=== PATIENT | female | born 1980 | race Caucasian/White ===

== ENCOUNTER 2016-09-26 08:46 | Emergency (ER) | payer MEDICAID ==
[~2016-09-26] VITALS: Ht 157.5 cm; Wt 49.9 kg
[2016-09-26] MEDS ORDERED: ACETAMINOPHEN ES 500 MG TABLET PO ONE (09:00)
--- NOTE | 2016-09-26 09:06 | NUR ---
Pt eloped, pt seen walking out of ER with steady gait.
[2016-09-26] MEDS ORDERED: ACETAMINOPHEN ES 500 MG TABLET ONE (09:10)
== END 2016-09-26 09:09 | disposition left against medical advice (07) ==
LOC: ER 08:46
DX: R07.81 Pleurodynia (principal); F41.9 Anxiety disorder, unspecified; F31.9 Bipolar disorder, unspecified; G43.909 Migraine, unspecified, not intractable, without status migrainosus; Z59.0 Homelessness; Z88.6 Allergy status to analgesic agent; Z88.8 Allergy status to other drugs, medicaments and biological substances; Z90.49 Acquired absence of other specified parts of digestive tract
CPT/HCPCS: 99282; A4663

== ENCOUNTER 2017-01-26 07:35 | Emergency (ER) | payer SELFPAY ==
[~2017-01-26] VITALS: Ht 157.5 cm; Wt 49.9 kg
[2017-01-26] MEDS ORDERED: HYDROCODONE/APAP 10-325 MG TABLET PO ONE (07:45)
[2017-01-26] MEDS ORDERED: HYDROCODONE/APAP 10-325 MG TABLET ONE (07:57)
--- NOTE | 2017-01-26 08:30 | NUR ---
MSE COMPLETED, PT D/C'D HOME, ACI/RX 1 GIVEN. PT AMBULATED W/O DIFF/TOOK ALL BNELONGINGS.
[2017-01-26 08:32] VITALS: BP 115/78
== END 2017-01-26 08:33 | disposition home or self-care (01) ==
LOC: ER 07:35
DX: S22.31XA Fracture of one rib, right side, initial encounter for closed fracture (principal); F17.200 Nicotine dependence, unspecified, uncomplicated; F41.9 Anxiety disorder, unspecified; F31.9 Bipolar disorder, unspecified; Z88.4 Allergy status to anesthetic agent; X58.XXXA Exposure to other specified factors, initial encounter; Y93.9 Activity, unspecified; Y99.8 Other external cause status; Y92.89 Other specified places as the place of occurrence of the external cause
CPT/HCPCS: 71101; A4663

== ENCOUNTER 2017-06-25 12:53 | Emergency (ER) | payer SELFPAY ==
[~2017-06-25] VITALS: Ht 157.5 cm; Wt 49.9 kg
== END 2017-06-25 13:21 | disposition home or self-care (01) ==
LOC: ER 12:53
DX: Z76.0 Encounter for issue of repeat prescription (principal); F41.9 Anxiety disorder, unspecified; F31.9 Bipolar disorder, unspecified; Z59.0 Homelessness; Z88.5 Allergy status to narcotic agent; G43.909 Migraine, unspecified, not intractable, without status migrainosus; Z90.49 Acquired absence of other specified parts of digestive tract
CPT/HCPCS: A4663

== ENCOUNTER 2018-01-01 06:46 | Emergency (ER) | payer MEDICAID ==
[~2018-01-01] VITALS: Ht 160 cm; Wt 52.2 kg
[2018-01-01] MEDS ORDERED: LIDOCAINE 5% PATCH TD ONE (07:45)
--- NOTE | 2018-01-01 07:49 | NUR ---
M[facility] llamas in [facility] - 01/01/18 at 1209 by KACEY MIGUEL.
--- NOTE | 2018-01-01 07:51 | NUR ---
PT REQUESTING FOR NARCOTICS, ELOPED AFTER REALIZING PT IS NOT RECIEVING ANY.
== END 2018-01-01 08:00 | disposition left against medical advice (07) ==
LOC: ER 06:53
DX: R07.81 Pleurodynia (principal); G89.4 Chronic pain syndrome; F17.200 Nicotine dependence, unspecified, uncomplicated; Z59.0 Homelessness; Z88.5 Allergy status to narcotic agent; Z88.8 Allergy status to other drugs, medicaments and biological substances
CPT/HCPCS: 99281; A4663

== ENCOUNTER 2018-01-08 09:50 | Emergency (ER) | payer MEDICAID ==
[~2018-01-08] VITALS: Ht 157.5 cm; Wt 52.2 kg
--- NOTE | 2018-01-08 10:08 | NUR ---
Patient discharged to home in stable conditon. Written and verbal after care instructions given. Patient verbalizes understanding of instructions.pt walks in steady gait.
[2018-01-08] MEDS ORDERED: ACETAMINOPHEN ES 500 MG TABLET PO ONE (10:15)
== END 2018-01-08 10:11 | disposition home or self-care (01) ==
LOC: ER 09:52
DX: R07.81 Pleurodynia (principal); F17.200 Nicotine dependence, unspecified, uncomplicated; Z88.5 Allergy status to narcotic agent; Z88.8 Allergy status to other drugs, medicaments and biological substances; Z90.49 Acquired absence of other specified parts of digestive tract; Z59.0 Homelessness
CPT/HCPCS: 99282; A4663

== ENCOUNTER 2018-03-11 16:24 | Emergency (ER) | payer MEDICAID ==
[~2018-03-11] VITALS: Ht 157.5 cm; Wt 52.2 kg
[2018-03-11] MEDS ORDERED: ONDANSETRON ODT 4 MG TAB.RAPDIS SL ONE (17:15)
[2018-03-11] MEDS ORDERED: ACETAMINOPHEN 325 MG TABLET PO ONE (17:15)
[2018-03-11] MEDS ORDERED: ACETAMINOPHEN 325 MG TABLET ONE (17:16)
[2018-03-11] MEDS ORDERED: ONDANSETRON ODT 4 MG TAB.RAPDIS ONE (17:17)
--- NOTE | 2018-03-11 17:23 | NUR ---
CALLED [facility] DUE TO PT AGGRESSIVE, LOUD BEHAVIOR. PT YELLING AND SKING NARCOTICS INSPITE OF ALREADY EXPLAINED TO HER THE REASON NOT GIVING NARCOTICS
== END 2018-03-11 17:27 | disposition home or self-care (01) ==
LOC: ER 16:28
DX: S00.81XA Abrasion of other part of head, initial encounter (principal); F17.200 Nicotine dependence, unspecified, uncomplicated; Z90.49 Acquired absence of other specified parts of digestive tract; Z88.5 Allergy status to narcotic agent; Z88.8 Allergy status to other drugs, medicaments and biological substances; Z59.0 Homelessness; V19.9XXA Pedal cyclist (driver) (passenger) injured in unspecified traffic accident, initial encounter; Y93.89 Activity, other specified; Y92.89 Other specified places as the place of occurrence of the external cause; Y99.8 Other external cause status
CPT/HCPCS: 99282; A4663; Q0162

== ENCOUNTER 2018-03-14 12:12 | Emergency (ER) | payer MEDICAID ==
[~2018-03-14] VITALS: Ht 157.5 cm; Wt 52.2 kg
--- NOTE | 2018-03-14 12:36 | NUR ---
patient in room, lying in bed in position, poorly groamed with dirty finger nails. No respirotory distress. Complains of nausea. Scabs on mid forehead and nose, secondary to fall 3 days ago, per patient. Patient changed into gown.
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
[2018-03-14] MEDS ORDERED: ACETAMINOPHEN ES 500 MG TABLET ONE (12:59)
[2018-03-14] MEDS ORDERED: ONDANSETRON ODT 4 MG TAB.RAPDIS ONE (12:59)
[2018-03-14] MEDS ORDERED: ACETAMINOPHEN ES 500 MG TABLET PO ONE (13:00)
[2018-03-14] MEDS ORDERED: ONDANSETRON ODT 4 MG TAB.RAPDIS SL ONE (13:00)
[2018-03-14 13:34] LABS: *URINE HCG, QUAL NEGATIVE (NEGATIVE)
--- NOTE | 2018-03-14 14:28 | NUR ---
Patient discharged ambulating with stable gait.. Patient given printed after care material, verbalizes understanding. No prescription. No IV inseted on this visit. Patient in stable condtion.
[2018-03-14 14:30] VITALS: BP 122/73
== END 2018-03-14 14:33 | disposition home or self-care (01) ==
LOC: ER 12:12
DX: S00.83XA Contusion of other part of head, initial encounter (principal); S00.81XA Abrasion of other part of head, initial encounter; F17.200 Nicotine dependence, unspecified, uncomplicated; Z90.49 Acquired absence of other specified parts of digestive tract; Z88.5 Allergy status to narcotic agent; Z88.8 Allergy status to other drugs, medicaments and biological substances; Z59.0 Homelessness; V29.9XXA Motorcycle rider (driver) (passenger) injured in unspecified traffic accident, initial encounter; Y93.89 Activity, other specified; Y92.89 Other specified places as the place of occurrence of the external cause; Y99.8 Other external cause status
CPT/HCPCS: 70450; 70486; 84703; 99285; A4663; A9150; Q0162

== ENCOUNTER 2018-10-28 02:39 | Emergency (ER) | payer MEDICAID ==
[~2018-10-28] VITALS: Ht 157.5 cm; Wt 54.4 kg
[2018-10-28] MEDS ORDERED: FLUCONAZOLE 100 MG TABLET PO ONE (03:00)
[2018-10-28] MEDS ORDERED: SULFAMETH/TRIMETH 800/160 MG TABLET PO ONE (03:00)
[2018-10-28] MEDS ORDERED: OXYCODONE/APAP 5-325 MG TABLET PO ONE (03:00)
[2018-10-28] MEDS ORDERED: FLUCONAZOLE 100 MG TABLET ONE (03:09)
[2018-10-28] MEDS ORDERED: OXYCODONE/APAP 5-325 MG TABLET ONE (03:10)
[2018-10-28] MEDS ORDERED: SULFAMETH/TRIMETH 800/160 MG TABLET ONE (03:10)
--- NOTE | 2018-10-28 03:16 | NUR ---
Pt states she wants to leave. Understands & verbalizes d/c instructions.
--- NOTE | 2018-10-28 03:17 | NUR ---
Patient given written and verbal discharge instructions. Patient verbalizes understanding of instructions. Patient is ambulatory with steady gait. Refuses offer of long-term placement. Patient given list of available shelters in surrounding area.
[2018-10-28 03:20] VITALS: BP 121/69
[2018-10-28 03:20] LABS: *BILIRUBIN,URIN NEGATIVE (NEGATIVE); *BLOOD, URINE NEGATIVE (NEGATIVE); *CLARITY,URINE SLIGHTLY CLOUDY (CLEAR); *COLOR,URINE YELLOW (YELLOW); *KETONES,URINE TRACE (NEGATIVE); LEUKOCYTE ESTERASE ,URINE 2+ (NEGATIVE); NITRITE, URINE POSITIVE (NEGATIVE); PH,URINE 6.5 (5.0-8.0); UGLUCOSE NEGATIVE (NEGATIVE)
[2018-10-28 03:30] LABS: BACTERIA,URINE MANY /HPF (NONE SEEN); SQUAMOUS EPITHELIAL CELL,UR MODERATE /HPF (NONE SEEN); WBC,URINE 20-50 /HPF (0-3)
[2018-10-28 03:31] LABS: *URINE HCG, QUAL NEGATIVE (NEGATIVE)
== END 2018-10-28 03:21 | disposition home or self-care (01) ==
LOC: ER 02:43
DX: N39.0 Urinary tract infection, site not specified (principal); N80.9 Endometriosis, unspecified; J45.909 Unspecified asthma, uncomplicated; F17.200 Nicotine dependence, unspecified, uncomplicated; Z90.49 Acquired absence of other specified parts of digestive tract; Z59.0 Homelessness; Z88.5 Allergy status to narcotic agent; Z88.8 Allergy status to other drugs, medicaments and biological substances
CPT/HCPCS: 84703; 87077; 87086; A4663

== ENCOUNTER 2018-12-24 07:59 | Inpatient (IN) | payer MEDICAID ==
[~2018-12-24] VITALS: Ht 162.6 cm; Wt 58.1 kg
[2018-12-24] MEDS ORDERED: ACETAMINOPHEN 325 MG TABLET PO ONE (08:30)
[2018-12-24] MEDS ORDERED: METOCLOPRAMIDE HCL 10 MG/2 ML VIAL IV ONE (08:30)
[2018-12-24] MEDS ORDERED: IV NORMAL SALINE 1000 ML BAG IV ONE (08:30)
[2018-12-24] MEDS ORDERED: METOCLOPRAMIDE HCL 10 MG/2 ML VIAL ONE (08:49)
[2018-12-24] MEDS ORDERED: ACETAMINOPHEN ES 500 MG TABLET ONE (08:50)
[2018-12-24 08:52] LABS: BASOPHILS % (AUTO) 0.2 % (0.0-2.0); HEMATOCRIT 41.8 % (31.2-41.9); HEMOGLOBIN 14.5 g/dL (10.9-14.3); LYMPHOCYTES # (AUTO) 0.8 K/uL (20.0-40.0); LYMPHOCYTES % (AUTO) 9.5 % (20.5-51.5); MEAN CORPUSCULAR HEMOGLOBIN 32.3 uug (24.7-32.8); MEAN CORPUSCULAR HGB CONC 35 g/dL (32.3-35.6); MEAN CORPUSCULAR VOLUME 93.6 fL (75.5-95.3); MONOCYTES # (AUTO) 0.6 K/uL (2.0-10.0); MONOCYTES % (AUTO) 7.5 % (0.0-11.0); NEUTROPHILS # (AUTO) 6.9 K/uL (1.8-8.9); NEUTROPHILS % (AUTO) 82.8 % (38.5-71.5); PLATELET COUNT (AUTO) 218 K/uL (179-408); RED BLOOD CELL COUNT(AUTO) 4.47 MIL/uL (3.63-4.92); WHITE BLOOD COUNT (AUTO) 8.4 K/uL (3.8-11.8)
[2018-12-24 09:04] LABS: ETHANOL < 3 MG/DL (0-0)
[2018-12-24 09:05] LABS: BILIRUBIN,DIRECT 0.5 mg/dL (0.0-0.2); BILIRUBIN,TOTAL 2.7 mg/dL (0.2-1.0); CREATININE 0.7 mg/dL (0.6-1.3); POTASSIUM 3.1 mmol/L (3.5-5.1); TOTAL PROTEIN, SERUM 8.3 g/dL (6.4-8.2)
[2018-12-24 10:08] LABS: *BLOOD, URINE 2+ (NEGATIVE); *CLARITY,URINE SLIGHTLY CLOUDY (CLEAR); *COLOR,URINE YELLOW (YELLOW); *KETONES,URINE NEGATIVE (NEGATIVE); LEUKOCYTE ESTERASE ,URINE 1+ (NEGATIVE); NITRITE, URINE POSITIVE (NEGATIVE); PH,URINE 6.5 (5.0-8.0); UGLUCOSE NEGATIVE (NEGATIVE)
[2018-12-24 10:09] LABS: *URINE HCG, QUAL NEGATIVE (NEGATIVE)
[2018-12-24 10:11] LABS: *BILIRUBIN,URIN 1+ (NEGATIVE)
[2018-12-24 10:16] LABS: *AMPHETAMINE, URINE POSITIVE (NEGATIVE); *BARBITURATE, URINE NEGATIVE (NEGATIVE); *CANNABINOID, URINE NEGATIVE (NEGATIVE); *COCCAINE, URINE NEGATIVE (NEGATIVE); *OPIATE, URINE NEGATIVE (NEGATIVE); *PHENCYCLIDINE SCREEN,URINE NEGATIVE (NEGATIVE)
[2018-12-24 10:30] LABS: BACTERIA,URINE MANY /HPF (NONE SEEN); SQUAMOUS EPITHELIAL CELL,UR FEW /HPF (NONE SEEN); WBC,URINE 20-50 /HPF (0-3)
[2018-12-24] MEDS ORDERED: POTASSIUM CHLORIDE 20 MEQ TAB.PRT.SR PO ONE (10:30)
[2018-12-24] MEDS ORDERED: CEFTRIAXONE 1 G in IV DEXTROSE 5% 50 ML IV ONE (10:30)
[2018-12-24] MEDS ORDERED: POTASSIUM CHLORIDE 20 MEQ TAB.PRT.SR ONE (10:33)
[2018-12-24] MEDS ORDERED: CEFTRIAXONE 1 G VIAL ONE (10:33)
[2018-12-24] MEDS ORDERED: ONDANSETRON 4 MG/2 ML VIAL IV PRN (11:30)
[2018-12-24] MEDS ORDERED: MAGNESIUM HYDROXIDE 30 ML LIQUID UDC PO PRN (11:30)
[2018-12-24 13:28] VITALS: BP 99/63
[2018-12-24] MEDS: IV NS 1000 ML 1,000 ML IV PRN (14:07)
[2018-12-24 16:11] VITALS: BP 100/63
[2018-12-24] MEDS: ACETAMINOPHEN 325 MG TABLET PO PRN (16:46)
[2018-12-24] MEDS: HYDROCODONE/APAP 5-325MG TABLET PO PRN (19:41)
[2018-12-24 20:03] VITALS: BP 118/78
[2018-12-25] MEDS: IV NS 1000 ML 1,000 ML IV PRN ×2 (01:10→10:50)
[2018-12-25] MEDS: HYDROCODONE/APAP 5-325MG TABLET PO PRN ×3 (01:18→13:07)
[2018-12-25] MEDS ORDERED: PIPERACILLIN/TAZOBACTAM/D5W 3.375 G in PREMIXED 1 EACH IV SCH (02:30)
[2018-12-25] MEDS ORDERED: PIPERACILLIN/TAZOBACTAM/D5W 3.375 G in PREMIXED 1 EACH IV ONE (02:30)
[2018-12-25] MEDS ORDERED: PIPERACILLIN/TAZOBACTAM/D5W 50 ML IV ONE (02:59)
[2018-12-25] MEDS: ACETAMINOPHEN 325 MG TABLET PO PRN (03:15)
[2018-12-25] MEDS: PANTOPRAZOLE SODIUM 40 MG TABLET.DR PO SCH (06:08)
[2018-12-25 06:13] VITALS: BP 120/60
[2018-12-25 06:40] LABS: BASOPHILS % (AUTO) 0.4 % (0.0-2.0); EOSINOPHILS % (AUTO) 0.5 % (0.0-7.0); HEMATOCRIT 37.2 % (31.2-41.9); HEMOGLOBIN 12.7 g/dL (10.9-14.3); LYMPHOCYTES % (AUTO) 22.8 % (20.5-51.5); MEAN CORPUSCULAR HEMOGLOBIN 32.3 uug (24.7-32.8); MEAN CORPUSCULAR HGB CONC 34 g/dL (32.3-35.6); MEAN CORPUSCULAR VOLUME 94.6 fL (75.5-95.3); MONOCYTES # (AUTO) 0.4 K/uL (2.0-10.0); MONOCYTES % (AUTO) 10.4 % (0.0-11.0); NEUTROPHILS # (AUTO) 2.8 K/uL (1.8-8.9); NEUTROPHILS % (AUTO) 65.9 % (38.5-71.5); PLATELET COUNT (AUTO) 189 K/uL (179-408); RED BLOOD CELL COUNT(AUTO) 3.93 MIL/uL (3.63-4.92); WHITE BLOOD COUNT (AUTO) 4.2 K/uL (3.8-11.8)
[2018-12-25 06:59] LABS: BILIRUBIN,TOTAL 1.7 mg/dL (0.2-1.0); CREATININE 0.6 mg/dL (0.6-1.3); MAGNESIUM 1.8 mg/dL (1.8-2.4); PHOSPHOROUS 2.9 mg/dL (2.5-4.9); POTASSIUM 3.5 mmol/L (3.5-5.1); TOTAL PROTEIN, SERUM 6.4 g/dL (6.4-8.2)
[2018-12-25 07:05] LABS: THYROID STIMULATING HORMONE 1.288 mIU/mL (0.358-3.740)
[2018-12-25] MEDS ORDERED: CEFTRIAXONE 1 G in IV DEXTROSE 5% 50 ML IV SCH (10:00)
[2018-12-25] MEDS: PIPERACILLIN/TAZOBACTAM/D5W 3.375 G in PREMIXED 1 EACH IV SCH ×2 (10:49→18:09)
[2018-12-25 11:12] VITALS: BP 105/66
[2018-12-25 15:18] VITALS: BP 109/61
[2018-12-25] MEDS: OXYCODONE/APAP 5-325 MG TABLET PO PRN ×2 (15:56→23:08)
[2018-12-25 20:01] VITALS: BP 108/67
[2018-12-26] MEDS: PIPERACILLIN/TAZOBACTAM/D5W 3.375 G in PREMIXED 1 EACH IV SCH ×3 (02:57→19:49)
[2018-12-26 05:57] VITALS: BP 115/62
[2018-12-26] MEDS: OXYCODONE/APAP 5-325 MG TABLET PO PRN ×3 (06:02→20:14)
[2018-12-26] MEDS: PANTOPRAZOLE SODIUM 40 MG TABLET.DR PO SCH (06:02)
[2018-12-26 06:50] LABS: CARBON DIOXIDE 29 mmol/L (21-32); CHLORIDE 105 mmol/L (98-107); CREATININE 0.5 mg/dL (0.6-1.3); GLUCOSE 103 mg/dL (74-106); POTASSIUM 3.3 mmol/L (3.5-5.1); UREA NITROGEN, BLOOD 10 mg/dL (7-18)
[2018-12-26 09:33] LABS: BASOPHILS % (AUTO) 0.6 % (0.0-2.0); EOSINOPHILS # (AUTO) 0.1 K/uL (0.0-0.7); EOSINOPHILS % (AUTO) 2.6 % (0.0-7.0); HEMATOCRIT 35.6 % (31.2-41.9); HEMOGLOBIN 12.1 g/dL (10.9-14.3); LYMPHOCYTES # (AUTO) 1.2 K/uL (20.0-40.0); LYMPHOCYTES % (AUTO) 33.9 % (20.5-51.5); MEAN CORPUSCULAR HEMOGLOBIN 32.3 uug (24.7-32.8); MEAN CORPUSCULAR HGB CONC 34 g/dL (32.3-35.6); MONOCYTES # (AUTO) 0.4 K/uL (2.0-10.0); MONOCYTES % (AUTO) 10.3 % (0.0-11.0); NEUTROPHILS # (AUTO) 1.9 K/uL (1.8-8.9); NEUTROPHILS % (AUTO) 52.6 % (38.5-71.5); PLATELET COUNT (AUTO) 232 K/uL (179-408); RED BLOOD CELL COUNT(AUTO) 3.74 MIL/uL (3.63-4.92); WHITE BLOOD COUNT (AUTO) 3.5 K/uL (3.8-11.8)
[2018-12-26 11:01] VITALS: BP 106/70
[2018-12-26] MEDS: IV NS 1000 ML 1,000 ML IV PRN (11:13)
[2018-12-26] MEDS ORDERED: POTASSIUM CHLORIDE 20 MEQ TAB.PRT.SR PO ONE (12:15)
[2018-12-26 15:12] VITALS: BP 110/74
[2018-12-26 20:00] VITALS: BP 121/65
[2018-12-27] MEDS: PIPERACILLIN/TAZOBACTAM/D5W 3.375 G in PREMIXED 1 EACH IV SCH ×2 (03:17→11:09)
[2018-12-27] MEDS: IV NS 1000 ML 1,000 ML IV PRN (03:18)
[2018-12-27] MEDS: OXYCODONE/APAP 5-325 MG TABLET PO PRN ×2 (03:44→09:41)
[2018-12-27 04:30] VITALS: BP 101/67
[2018-12-27] MEDS: PANTOPRAZOLE SODIUM 40 MG TABLET.DR PO SCH (06:09)
[2018-12-27 06:45] LABS: CARBON DIOXIDE 30 mmol/L (21-32); CHLORIDE 105 mmol/L (98-107); CREATININE 0.5 mg/dL (0.6-1.3); GLUCOSE 98 mg/dL (74-106); POTASSIUM 3.9 mmol/L (3.5-5.1); UREA NITROGEN, BLOOD 8 mg/dL (7-18)
[2018-12-27 11:13] VITALS: BP 133/62
[2018-12-27 15:26] VITALS: BP 103/67
== END 2018-12-27 15:35 | disposition home or self-care (01) | DRG 720 ==
LOC: ER 07:59 → MEDSURG3 12:44
DX: A41.51 Sepsis due to Escherichia coli [E. coli] (principal); R17 Unspecified jaundice; N39.0 Urinary tract infection, site not specified; E87.6 Hypokalemia; Z59.0 Homelessness; F15.10 Other stimulant abuse, uncomplicated; F31.9 Bipolar disorder, unspecified; F41.9 Anxiety disorder, unspecified; N85.4 Malposition of uterus; J45.909 Unspecified asthma, uncomplicated; G43.909 Migraine, unspecified, not intractable, without status migrainosus; F17.210 Nicotine dependence, cigarettes, uncomplicated; M79.7 Fibromyalgia; G89.29 Other chronic pain; Z87.42 Personal history of other diseases of the female genital tract; Z90.49 Acquired absence of other specified parts of digestive tract; Z87.81 Personal history of (healed) traumatic fracture; R41.82 Altered mental status, unspecified
CPT/HCPCS: 36415; 70450; 71045; 80307; 83605; 83735; 84100; 84443; 84703; 85025; 85730; 87040; 87077; 87086; A4663; A9150; G0378; G0480; J0696; J2543; J2765; J7030; J7060

== ENCOUNTER 2019-01-09 20:47 | Emergency (ER) | payer MEDICAID ==
[~2019-01-09] VITALS: Ht 157.5 cm; Wt 54.4 kg
[2019-01-09] MEDS ORDERED: ONDANSETRON 4 MG/2 ML VIAL IV ONE (21:15)
[2019-01-09] MEDS ORDERED: IV NORMAL SALINE 1000 ML BAG IV ONE (21:15)
[2019-01-09] MEDS ORDERED: HYDROMORPHONE 1 MG/1 ML DISP.SYRIN IV ONE (21:15)
[2019-01-09 21:37] LABS: *BILIRUBIN,URIN NEGATIVE (NEGATIVE); *BLOOD, URINE NEGATIVE (NEGATIVE); *CLARITY,URINE CLOUDY (CLEAR); *COLOR,URINE YELLOW (YELLOW); *KETONES,URINE NEGATIVE (NEGATIVE); *URINE HCG, QUAL NEGATIVE (NEGATIVE); *UROBILINOGEN,URINE 0.2 E.U./dl (NORMAL); LEUKOCYTE ESTERASE ,URINE 1+ (NEGATIVE); NITRITE, URINE POSITIVE (NEGATIVE); UGLUCOSE NEGATIVE (NEGATIVE)
[2019-01-09 21:38] LABS: BASOPHILS % (AUTO) 0.5 % (0.0-2.0); EOSINOPHILS % (AUTO) 0.5 % (0.0-7.0); HEMATOCRIT 39.8 % (31.2-41.9); HEMOGLOBIN 13.6 g/dL (10.9-14.3); LYMPHOCYTES # (AUTO) 1.5 K/uL (20.0-40.0); LYMPHOCYTES % (AUTO) 25.9 % (20.5-51.5); MEAN CORPUSCULAR HEMOGLOBIN 31.9 uug (24.7-32.8); MEAN CORPUSCULAR HGB CONC 34 g/dL (32.3-35.6); MEAN CORPUSCULAR VOLUME 93.3 fL (75.5-95.3); MONOCYTES # (AUTO) 0.3 K/uL (2.0-10.0); MONOCYTES % (AUTO) 4.8 % (0.0-11.0); NEUTROPHILS # (AUTO) 3.9 K/uL (1.8-8.9); NEUTROPHILS % (AUTO) 68.3 % (38.5-71.5); PLATELET COUNT (AUTO) 371 K/uL (179-408); RED BLOOD CELL COUNT(AUTO) 4.27 MIL/uL (3.63-4.92); WHITE BLOOD COUNT (AUTO) 5.7 K/uL (3.8-11.8)
[2019-01-09 21:45] LABS: BACTERIA,URINE MANY /HPF (NONE SEEN); CREATININE 0.7 mg/dL (0.6-1.3); MUCUS,URINE MODERATE /LPF (0-FEW); POTASSIUM 3.3 mmol/L (3.5-5.1); SQUAMOUS EPITHELIAL CELL,UR MODERATE /HPF (NONE SEEN); WBC,URINE 50-80 /HPF (0-3)
[2019-01-09] MEDS ORDERED: HYDROMORPHONE 1 MG/1 ML DISP.SYRIN ONE (21:47)
[2019-01-09] MEDS ORDERED: ONDANSETRON 4 MG/2 ML VIAL ONE (21:47)
[2019-01-09 21:50] LABS: BILIRUBIN,DIRECT 0.4 mg/dL (0.0-0.2); BILIRUBIN,TOTAL 2.4 mg/dL (0.2-1.0); TOTAL PROTEIN, SERUM 7.9 g/dL (6.4-8.2)
[2019-01-09] MEDS ORDERED: CEFTRIAXONE 1 G in IV DEXTROSE 5% 50 ML IV ONE (22:15)
[2019-01-09 23:13] VITALS: BP 124/78
--- NOTE | 2019-01-09 23:15 | NUR ---
IV removed. Catheter intact and site benign. Pressure and 4x4 gauze applied to site. No bleeding noted. Patient is A/O x 4 and speaking in complete sentences. Patient given written and verbal discharge instructions. Patient verbalizes understanding of instructions. Patient is ambulatory with steady gait. Refuses offer of penitentiary placement. Patient given list of available shelters in surrounding area.
== END 2019-01-09 23:16 | disposition home or self-care (01) ==
LOC: ER 20:50
DX: N30.90 Cystitis, unspecified without hematuria (principal); N39.0 Urinary tract infection, site not specified; J45.909 Unspecified asthma, uncomplicated; F17.200 Nicotine dependence, unspecified, uncomplicated; F41.9 Anxiety disorder, unspecified; F31.9 Bipolar disorder, unspecified; Z90.49 Acquired absence of other specified parts of digestive tract; Z59.0 Homelessness
CPT/HCPCS: 36415; 74176; 80048; 80076; 81000; 81001; 83605; 83690; 84703; 85025; 87040 ×2; 87077; 87086; 87186; 96361; 96365; 96375; 99284; J0696 ×2; J1170; J2405; J7060 ×2; A4663; J7030

== ENCOUNTER 2019-01-26 20:35 | Emergency (ER) | payer MEDICAID ==
[~2019-01-26] VITALS: Ht 157.5 cm; Wt 56.7 kg
--- NOTE | 2019-01-26 20:38 | NUR ---
Patient called for triage, patient not in waiting room/ not outside the ER. Will retry in 5 minutes.
--- NOTE | 2019-01-26 20:47 | NUR ---
DR. KWON AT BEDSIDE FOR MSE.
[2019-01-26] MEDS ORDERED: SULFAMETH/TRIMETH 800/160 MG TABLET PO ONE (21:00)
[2019-01-26] MEDS ORDERED: HYDROCODONE/APAP 10-325 MG TABLET PO ONE (21:00)
[2019-01-26] MEDS ORDERED: SULFAMETH/TRIMETH 800/160 MG TABLET ONE (21:02)
[2019-01-26] MEDS ORDERED: HYDROCODONE/APAP 10-325 MG TABLET ONE (21:02)
--- NOTE | 2019-01-26 21:03 | NUR ---
RIGHT ARM CEANSED WITH NORMAL SALINE, TRIPLE ANTIBIOTIC APPLIED AND COVERED WITH BAND AID.
[2019-01-26] MEDS ORDERED: NEOMY/BACITRA/POLYMYXIN B OINT UD PACKET TP ONE ×2 (21:06→21:15)
--- NOTE | 2019-01-26 21:10 | NUR ---
Patient discharged to home in stable conditon. Written and verbal after care instructions given. Patient verbalizes understanding of instructions. PATIENT LEFT WITH STABLE GAIT.
[2019-01-26 21:11] VITALS: BP 128/81
== END 2019-01-26 21:11 | disposition home or self-care (01) ==
LOC: ER 20:35
DX: L03.113 Cellulitis of right upper limb (principal); J45.909 Unspecified asthma, uncomplicated; F17.200 Nicotine dependence, unspecified, uncomplicated; F41.9 Anxiety disorder, unspecified; Z90.49 Acquired absence of other specified parts of digestive tract; Z88.5 Allergy status to narcotic agent; Z88.8 Allergy status to other drugs, medicaments and biological substances; Z59.0 Homelessness
CPT/HCPCS: 73090; A4663